=== PATIENT | male | born 1990 | race Caucasian/White ===

== ENCOUNTER 2018-04-08 09:14 | Emergency (ER) | payer MEDICAID ==
[~2018-04-08] VITALS: Ht 190.5 cm; Wt 98.8 kg
[~2018-04-08 09:14] MED LIST: AZIT250T PO; DICY10CA88 PO; NO MEDS TAKEN; ONDA8TAB9 PO; PANT40TA39 PO
[2018-04-08 09:34] LABS: CLARITY,URINE CLEAR (Clear); COLOR,URINE YELLOW (Yellow); GLUCOSE, URINE NEGATIVE (Neg); KETONES,URINE 15 mg/dl (Neg); LEUKOCYTE ESTERASE ,URINE NEGATIVE (Neg); NITRITES, URINE NEGATIVE (Neg); OCCULT BLOOD,URINE NEGATIVE (Neg); PH,URINE 6.5 (4.8-8.0); PROTEIN,URINE TRACE mg/dl (Neg)
[2018-04-08 09:35] LABS: BASOPHILS % (AUTO) 0.1 % (0-1); EOSINOPHILS # (AUTO) 0.1 X10'3 (0-0.9); EOSINOPHILS % (AUTO) 1.2 % (0-6); HEMATOCRIT 56.2 % (42.0-52.0); LYMPHOCYTES # (AUTO) 0.3 X10'3 (1.1-4.8); LYMPHOCYTES % (AUTO) 2.4 % (21-51); MEAN CORPUSCULAR HEMOGLOBIN 30.7 PG (27.0-31.0); MEAN CORPUSCULAR HGB CONC 34.4 % (33.0-36.5); MEAN CORPUSCULAR VOLUME 89.2 FL (78-98); MEAN PLATELET VOLUME 8.8 FL (7.4-10.4); MONOCYTES # (AUTO) 0.2 X10'3 (0-0.9); MONOCYTES % (AUTO) 1.4 % (2-12); NEUTROPHILS # (AUTO) 11.7 X10'3 (1.8-7.7); NEUTROPHILS % (AUTO) 94.9 % (42-75); PLATELET COUNT 143 X10'3 (140-440); RED CELL DISTRIBUTION WIDTH 14.1 % (11.5-14.5); WHITE BLOOD COUNT 12.4 X10'3 (4.5-11.0)
[2018-04-08 09:36] LABS: HEMOGLOBIN 19.3 g/dl (14.0-17.9)
[2018-04-08 09:37] LABS: UA COLLECTION TYPE VOIDED
[2018-04-08 09:43] LABS: PROTHROMBIN TIME 10.5 SECONDS (9.0-12.0)
[2018-04-08 09:43] LABS: SQUAMOUS EPITHELIAL CELL,UR FEW /LPF (FEW)
[2018-04-08 09:44] LABS: MUCUS STRANDS FEW /LPF (Neg)
[2018-04-08 09:45] LABS: BACTERIA,URINE FEW /HPF (Neg); RBC,URINE 0-2 /HPF (0-2); WBC,URINE 0-4 /HPF (0-4)
[2018-04-08 09:48] LABS: ALANINE AMINOTRANSFERASE 35 U/L (12-78); ALBUMIN 4.2 G/DL (3.4-5.0); ALKALINE PHOSPHATASE 60 IU/L (46-116); ANION GAP 10 (8-16); ASPARTATE AMINO TRANSFERASE 25 U/L (10-37); BILIRUBIN,TOTAL 1.1 MG/DL (0.1-1.0); BLOOD UREA NITROGEN 20 MG/DL (7-18); BUN/CREATININE RATIO 15.5 (5.4-32.0); CALCIUM 8.9 MG/DL (8.5-10.1); CHLORIDE 100 MMOL/L (99-107); CREATININE 1.29 MG/DL (0.60-1.10); GLUCOSE 112 MG/DL (70-104); POTASSIUM 4.2 MMOL/L (3.5-5.1); SODIUM 135 MMOL/L (135-145); TOTAL CARBON DIOXIDE 25.3 MMOL/L (24-32); TOTAL PROTEIN 8.4 G/DL (6.4-8.2); eGFR 65 ML/MIN
[2018-04-08 10:00] VITALS: BP 137/79
[2018-04-08] MEDS ORDERED: pantoprazole 40 MG vial IV ONE (10:15)
[2018-04-08] MEDS ORDERED: normal saline 1000ML IV soln IVB ONE (10:15)
[2018-04-08] MEDS ORDERED: famotidine/PF 10 mg/ml inj IV ONE (10:15)
[2018-04-08] MEDS ORDERED: ondansetron/PF 4mg/2ml inj IV ONE (10:15)
[2018-04-08 10:31] LABS: LIPASE 105 U/L (73-393)
[2018-04-08] MEDS ORDERED: ONDA8TAB13 PO (11:15)
[2018-04-08] MEDS ORDERED: PANT-47 PO (11:15)
== END 2018-04-08 11:30 | disposition home or self-care (01) ==
LOC: ER 09:14
DX: K52.9 Noninfective gastroenteritis and colitis, unspecified (principal); R10.33 Periumbilical pain; K21.9 Gastro-esophageal reflux disease without esophagitis; F12.90 Cannabis use, unspecified, uncomplicated; F17.200 Nicotine dependence, unspecified, uncomplicated; Z98.890 Other specified postprocedural states; Z88.1 Allergy status to other antibiotic agents; Z79.899 Other long term (current) drug therapy
CPT/HCPCS: 36415; 80053; 81001; 83690; 85025; 85610; 96361; 96374; 96375; 99284; C9113; J2405; J3490; J7030

== ENCOUNTER 2023-04-07 13:35 | Emergency (ER) | payer MEDICAID ==
[~2023-04-07] VITALS: Ht 193 cm; Wt 106.4 kg
[~2023-04-07 13:35] MED LIST changes: +ONDA8TAB13 PO; +PANT-47 PO
[2023-04-07 13:38] VITALS: BP 151/102
[2023-04-07 14:58] LABS: BASOPHILS % (AUTO) 0.7 % (0-1); EOSINOPHILS # (AUTO) 0.3 X10'3 (0-0.9); EOSINOPHILS % (AUTO) 3.9 % (0-6); HEMATOCRIT 51.8 % (42.0-52.0); LYMPHOCYTES # (AUTO) 1.6 X10'3 (1.1-4.8); LYMPHOCYTES % (AUTO) 22.1 % (21-51); MEAN CORPUSCULAR HEMOGLOBIN 33.6 PG (27.0-31.0); MEAN CORPUSCULAR HGB CONC 35.2 g/dL (33.0-36.5); MEAN CORPUSCULAR VOLUME 95.5 FL (78-98); MEAN PLATELET VOLUME 8.8 FL (7.4-10.4); MONOCYTES # (AUTO) 0.7 X10'3 (0-0.9); MONOCYTES % (AUTO) 9.8 % (2-12); NEUTROPHILS # (AUTO) 4.6 X10'3 (1.8-7.7); NEUTROPHILS % (AUTO) 63.5 % (42-75); PLATELET COUNT 157 X10'3 (140-440); RED BLOOD COUNT 5.43 X10'6 (4.70-6.10); RED CELL DISTRIBUTION WIDTH 14.7 % (11.5-14.5); WHITE BLOOD COUNT 7.2 X10'3 (4.5-11.0)
[2023-04-07 15:00] LABS: HEMOGLOBIN 18.2 g/dl (14.0-17.9)
[2023-04-07 15:07] LABS: GLUCOSE 98 MG/DL (70-104); SODIUM 139 MMOL/L (135-145)
[2023-04-07 15:08] LABS: ALANINE AMINOTRANSFERASE 42 U/L (12-78); ALBUMIN 4.1 G/DL (3.4-5.0); ALBUMIN/GLOBULIN RATIO 1.1 (1.1-1.5); ALKALINE PHOSPHATASE 68 IU/L (46-116); ANION GAP 12 (8-16); ASPARTATE AMINO TRANSFERASE 27 U/L (10-37); BILIRUBIN,TOTAL 0.7 MG/DL (0.1-1.0); BLOOD UREA NITROGEN 16 MG/DL (7-18); CALCIUM 9.2 MG/DL (8.5-10.1); CHLORIDE 103 MMOL/L (99-107); CREATININE 1.77 MG/DL (0.60-1.10); TOTAL CARBON DIOXIDE 24.1 MMOL/L (24-32); TOTAL PROTEIN 7.8 G/DL (6.4-8.2); eGFR 44 ML/MIN
[2023-04-07 15:14] LABS: ETHANOL < 0.010 GM/DL (0.0-0.010)
[2023-04-07 15:32] LABS: CLARITY,URINE CLEAR (Clear); COLOR,URINE YELLOW (Yellow); GLUCOSE, URINE NEGATIVE (Neg); KETONES,URINE NEGATIVE (Neg); LEUKOCYTE ESTERASE ,URINE NEGATIVE (Neg); NITRITES, URINE NEGATIVE (Neg); OCCULT BLOOD,URINE NEGATIVE (Neg); PROTEIN,URINE NEGATIVE (Neg); UROBILINOGEN,URINE 0.2 E.U/dL (0.2-1.0)
[2023-04-07 15:35] LABS: UA COLLECTION TYPE VOIDED
[2023-04-07 15:51] LABS: URINE AMPHETAMINE SCREEN NEGATIVE (Neg); URINE BARBITUATE SCREEN NEGATIVE (Neg); URINE BENZODIAZEPINES SCREEN NEGATIVE (Neg); URINE CANNABINOID SCREEN POSITIVE (Neg); URINE COCAINE SCREEN POSITIVE (Neg); URINE METHADONE SCREEN NEGATIVE (Neg); URINE OPIATE SCREEN NEGATIVE (Neg); URINE PHENCYCLIDINE SCREEN NEGATIVE (Neg)
== END 2023-04-07 15:53 | disposition home or self-care (01) ==
LOC: ER 13:36
DX: N28.9 Disorder of kidney and ureter, unspecified (principal); I10 Essential (primary) hypertension; F12.90 Cannabis use, unspecified, uncomplicated; Z88.1 Allergy status to other antibiotic agents; Z79.2 Long term (current) use of antibiotics; Z79.899 Other long term (current) drug therapy; K21.9 Gastro-esophageal reflux disease without esophagitis
CPT/HCPCS: 36415; 71045; 80053; 80305; 80320; 81003; 82948; 85025; 93005; 99285; J7030

== ENCOUNTER 2025-02-21 21:22 | Emergency (ER) | payer MEDICAID ==
[~2025-02-21] VITALS: Ht 193 cm; Wt 100.6 kg
[~2025-02-21 21:22] MED LIST changes: +ONDA-245 PO; -ONDA8TAB13 PO
[2025-02-21 21:23] VITALS: BP 141/92; PULSE 86; RESP 18; TEMP 98.8; O2SAT 95
== END 2025-02-21 23:55 | disposition left against medical advice (07) ==
LOC: ER 21:22
DX: M54.50 Low back pain, unspecified (principal); Z88.1 Allergy status to other antibiotic agents; Z53.21 Procedure and treatment not carried out due to patient leaving prior to being seen by health care provider